=== PATIENT | female | born 1980 | race American Indian/Alaskan Native ===

== ENCOUNTER 2021-12-01 14:32 | Emergency (ER) | payer SELFPAY ==
[2021-12-01 14:37] VITALS: BP 120/69
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
== END 2021-12-01 19:57 | disposition home or self-care (01) ==
LOC: ED 14:32
DX: R07.89 Other chest pain (principal); M79.18 Myalgia, other site; M25.561 Pain in right knee; M25.562 Pain in left knee; V49.49XA Driver injured in collision with other motor vehicles in traffic accident, initial encounter; Y93.89 Activity, other specified; Y92.89 Other specified places as the place of occurrence of the external cause; Y99.8 Other external cause status
CPT/HCPCS: 71046; 99283